=== PATIENT | female | born 1960 | race Native Hawaiian/Other Pacific Islander ===

== ENCOUNTER 2016-10-15 17:21 | Emergency (ER) | payer SELFPAY ==
[~2016-10-15] VITALS: Ht 152.4 cm; Wt 43.5 kg
[2016-10-15] MEDS ORDERED: LIDOCAINE 1%-EPI 1:100,000 20 ML VIAL TP ONE (18:00)
[2016-10-15 20:00] VITALS: BP 122/74
== END 2016-10-15 20:01 | disposition home or self-care (01) ==
LOC: ER 17:22
DX: S51.812A Laceration without foreign body of left forearm, initial encounter (principal); W54.0XXA Bitten by dog, initial encounter; Y93.89 Activity, other specified; Y92.89 Other specified places as the place of occurrence of the external cause; Y99.9 Unspecified external cause status
CPT/HCPCS: 12035; 73090; 99284; A4606; A6402; Z7610

== ENCOUNTER 2016-10-27 09:32 | Emergency (ER) | payer SELFPAY ==
[~2016-10-27] VITALS: Ht 152.4 cm; Wt 43.5 kg
[2016-10-27 09:38] VITALS: BP 126/75
== END 2016-10-27 10:05 | disposition home or self-care (01) ==
LOC: ER 09:34
DX: Z48.02 Encounter for removal of sutures (principal); S50.872D Other superficial bite of left forearm, subsequent encounter; W54.0XXD Bitten by dog, subsequent encounter
CPT/HCPCS: 99281; A4606; Z7610; Z7502